=== PATIENT | female | born 1950 ===

== ENCOUNTER 2023-05-06 07:02 | Day surgery (SDC) | payer OTHER ==
[~2023-05-06] VITALS: Ht 165.1 cm; Wt 76.2 kg
[~2023-05-06 07:02] MED LIST: ATORVAST PO; HYDRODIURIL12.5 MG PO; METFOR PO; TENORMIN25 MG PO
[2023-05-06] MEDS ORDERED: TRAM1TAB98 PO (09:42)
[2023-05-06] MEDS ORDERED: COLACE100 MG PO (09:42)
== END 2023-05-06 14:45 | disposition home or self-care (01) ==
LOC: CIR.AMB 07:02
PROVIDERS: ATTEND Surgery
DX: D12.9 Benign neoplasm of anus and anal canal (principal); K62.89 Other specified diseases of anus and rectum; I10 Essential (primary) hypertension